=== PATIENT | female | born 1935 | race Caucasian/White ===

== ENCOUNTER → 2017-10-27 | Outpatient (CLI) | payer OTHER | LOC: HYPER 06:57 | DX: S91.302A Unspecified open wound, left foot, initial encounter (principal); G89.29 Other chronic pain; I10 Essential (primary) hypertension; I73.9 Peripheral vascular disease, unspecified; I87.2 Venous insufficiency (chronic) (peripheral); M19.90 Unspecified osteoarthritis, unspecified site; M86.9 Osteomyelitis, unspecified; Z87.891 Personal history of nicotine dependence; X58.XXXA Exposure to other specified factors, initial encounter; Y93.89 Activity, other specified; Y92.89 Other specified places as the place of occurrence of the external cause; Y99.8 Other external cause status ==

== ENCOUNTER → 2017-11-23 | Outpatient (CLI) | payer OTHER | LOC: HYPER 06:47 | DX: S91.302D Unspecified open wound, left foot, subsequent encounter (principal); I73.9 Peripheral vascular disease, unspecified; I10 Essential (primary) hypertension; I87.2 Venous insufficiency (chronic) (peripheral); M86.8X7 Other osteomyelitis, ankle and foot; M19.90 Unspecified osteoarthritis, unspecified site; G89.29 Other chronic pain; Z87.891 Personal history of nicotine dependence; X58.XXXD Exposure to other specified factors, subsequent encounter ==

== ENCOUNTER → 2018-03-08 | Outpatient (CLI) | payer OTHER | LOC: HYPER 06:35 | DX: T81.31XA Disruption of external operation (surgical) wound, not elsewhere classified, initial encounter (principal); R60.0 Localized edema; M25.522 Pain in left elbow; M19.022 Primary osteoarthritis, left elbow; I10 Essential (primary) hypertension; I73.9 Peripheral vascular disease, unspecified; I87.2 Venous insufficiency (chronic) (peripheral); M86.8X8 Other osteomyelitis, other site; G89.29 Other chronic pain; Z87.891 Personal history of nicotine dependence; Y92.89 Other specified places as the place of occurrence of the external cause; Y83.8 Other surgical procedures as the cause of abnormal reaction of the patient, or of later complication, without mention of misadventure at the time of the procedure ==

== ENCOUNTER → 2018-03-22 | Outpatient (CLI) | payer OTHER | LOC: HYPER 06:49 | DX: T81.31XD Disruption of external operation (surgical) wound, not elsewhere classified, subsequent encounter (principal); M86.8X8 Other osteomyelitis, other site; M19.022 Primary osteoarthritis, left elbow; G89.29 Other chronic pain; I10 Essential (primary) hypertension; I73.9 Peripheral vascular disease, unspecified; Z87.891 Personal history of nicotine dependence; Y83.8 Other surgical procedures as the cause of abnormal reaction of the patient, or of later complication, without mention of misadventure at the time of the procedure ==

== ENCOUNTER → 2019-05-14 | Outpatient (CLI) | payer OTHER | LOC: HYPER 05-07 13:56 | DX: T81.31XA Disruption of external operation (surgical) wound, not elsewhere classified, initial encounter (principal); M86.8X8 Other osteomyelitis, other site; G89.29 Other chronic pain; I10 Essential (primary) hypertension; I73.9 Peripheral vascular disease, unspecified; I87.2 Venous insufficiency (chronic) (peripheral); M25.522 Pain in left elbow; M19.90 Unspecified osteoarthritis, unspecified site; Z87.891 Personal history of nicotine dependence; Z96.622 Presence of left artificial elbow joint; Y92.89 Other specified places as the place of occurrence of the external cause; Y83.8 Other surgical procedures as the cause of abnormal reaction of the patient, or of later complication, without mention of misadventure at the time of the procedure ==

== ENCOUNTER → 2019-05-23 | Outpatient (CLI) | payer OTHER | LOC: HYPER 09:44 | DX: T81.31XD Disruption of external operation (surgical) wound, not elsewhere classified, subsequent encounter (principal); M25.522 Pain in left elbow; I10 Essential (primary) hypertension; I73.9 Peripheral vascular disease, unspecified; I87.2 Venous insufficiency (chronic) (peripheral); M19.90 Unspecified osteoarthritis, unspecified site; G89.29 Other chronic pain; M86.9 Osteomyelitis, unspecified; Z96.622 Presence of left artificial elbow joint; Y83.8 Other surgical procedures as the cause of abnormal reaction of the patient, or of later complication, without mention of misadventure at the time of the procedure ==

== ENCOUNTER → 2019-05-29 | Outpatient (CLI) | payer OTHER | LOC: HYPER 11:06 | DX: T81.31XD Disruption of external operation (surgical) wound, not elsewhere classified, subsequent encounter (principal); S80.11XD Contusion of right lower leg, subsequent encounter; S91.011A Laceration without foreign body, right ankle, initial encounter; M86.8X8 Other osteomyelitis, other site; M25.522 Pain in left elbow; M19.90 Unspecified osteoarthritis, unspecified site; G89.29 Other chronic pain; I10 Essential (primary) hypertension; I73.89 Other specified peripheral vascular diseases; Z87.891 Personal history of nicotine dependence; W22.8XXA Striking against or struck by other objects, initial encounter; Y93.89 Activity, other specified; Y92.89 Other specified places as the place of occurrence of the external cause; Y99.8 Other external cause status; Y83.8 Other surgical procedures as the cause of abnormal reaction of the patient, or of later complication, without mention of misadventure at the time of the procedure ==